=== PATIENT | male | born 1980 | race Caucasian/White ===

== ENCOUNTER 2016-11-21 15:53 | Day surgery (SDC) | payer OTHER ==
[~2016-11-21] VITALS: Ht 188 cm; Wt 104.5 kg
[~2016-11-21 15:53] MED LIST: SKELAXIN 800MG800 MG PO; [UNRECOGNIZED DRUG - REMARK]; [UNRECOGNIZED DRUG - REMARK] IM
[2016-11-21 15:55] VITALS: TEMP 98.1
[2016-11-21 19:05] VITALS: BP 129/71; PULSE 59
[2016-11-21 19:20] VITALS: BP 145/81; PULSE 62
[2016-11-21 19:35] VITALS: BP 136/65; PULSE 61
[2016-11-21 19:50] VITALS: BP 136/65; PULSE 61
[2016-11-21 20:20] VITALS: BP 118/63; PULSE 64
== END 2016-11-21 20:20 | disposition home or self-care (01) ==
LOC: COL.ER 15:53 → SDCO 17:22
DX: S63.287A Dislocation of proximal interphalangeal joint of left little finger, initial encounter (principal); S66.127A Laceration of flexor muscle, fascia and tendon of left little finger at wrist and hand level, initial encounter; W23.0XXA Caught, crushed, jammed, or pinched between moving objects, initial encounter; Y93.89 Activity, other specified; Z80.3 Family history of malignant neoplasm of breast
CPT/HCPCS: A4565; J2250; J2270; J2405; J2704; J2795; J3010; J7120

== ENCOUNTER 2017-02-21 09:45 | Outpatient (RCR) | payer OTHER | END 2017-03-28 | LOC: WSOT | DX: S63.287A Dislocation of proximal interphalangeal joint of left little finger, initial encounter (principal); S61.217A Laceration without foreign body of left little finger without damage to nail, initial encounter ==

== ENCOUNTER 2018-06-01 16:39 | Emergency (ER) | payer SELFPAY ==
[~2018-06-01] VITALS: Ht 188 cm; Wt 104.5 kg
[2018-06-01 19:25] VITALS: BP 138/93; PULSE 62; TEMP 97.7
== END 2018-06-01 19:45 | disposition home or self-care (01) ==
LOC: COL.ER 16:39
DX: S09.90XA Unspecified injury of head, initial encounter (principal); V43.52XA Car driver injured in collision with other type car in traffic accident, initial encounter